=== PATIENT | male | born 1960 | race Caucasian/White ===

== ENCOUNTER 2022-02-01 06:22 | Inpatient (IN) | payer OTHER, SELFPAY ==
[2022-02-01] VITALS (26 sets, daily range): BP systolic 90–141; BP diastolic 52–76; PULSE 72–99; RESP 14–18; TEMP 36.4–37.6; O2SAT 99–100
--- NOTE | 2022-02-01 | DI.US_ITS ---
Exam(s) US EXTREMITY VENOUS BI EXAM: US EXTREMITY VENOUS BI CLINICAL HISTORY: concern for recurrent DVT. TECHNIQUE: Bilateral lower extremity venous ultrasound performed using grayscale, color-flow, and sp ectral Doppler analysis. COMPARISON: No exams were available for comparison FINDINGS: The bilateral common femoral, femoral and popliteal veins demonstrate normal compressibility, augment ation, and color Doppler. The posterior tibial veins are patent. The saphenofemoral junctions are unr emarkable. There is no evidence of a Bishop's cyst. The soft tissues are unremarkable. IMPRESSION: Right: Negative for DVT Left: Negative for DVT DATA REPOSITORY:
--- NOTE | 2022-02-01 06:15 | RT.EKG_ITS ---
APPROVED REPORT Exam: Resting ECG Reason for Exam: dizzy Patient Location: E HR:76 bpm ECG Measurements Heart Rate 76 AXIS SC 163 P 33 QRSd 90 QRS 6 QT 375 T 9 QTc 420 Conclusion Sinus rhythm...normal P axis, V-rate 60- 99 Physician: Rate 76, sinus rhythm, no significant ST elevations or depressions. No evidence of STEMI
--- NOTE | 2022-02-01 06:30 | DI.CT_ITS ---
Exam(s) CT HEAD WO EXAM: CT HEAD WO CLINICAL HISTORY: syncope, hx of cancer. TECHNIQUE: Imaging Protocol: Axial computed tomography images with coronal and sagittal reformatted images were created and reviewed COMPARISON: No exams were available for comparison FINDINGS: Ventricles and Extra axial spaces: Normal in size and morphology for the patient's age. Hemorrhage: None. Cerebral parenchyma: No acute territorial infarct. Midline shift: None. Brainstem/Cerebellum: Normal. Calvarium: Normal. Visualized Paranasal sinuses/Mastoids: Mild mucosal thickening in the right sphenoid and right maxill david sinuses. Otherwise visualized paranasal sinuses and mastoid air cells are clear. Soft Tissues: Unremarkable. IMPRESSION: No acute intracranial process. RADIATION DOSE DELIVERED: 780.29mGy.cm Total DLP DATA REPOSITORY: All CT scans at this facility are submitted to the National Radiology Data Registry (NRDR) Dose Index Registry (DIR) with the [employer] ([employer]). RADIATION OPTIMIZATION: All CT scans at this facility use at least one of these dose optimization te chniques: automated exposure control; mA and/or kV adjustment per patient size (includes targeted exa ms where dose is matched to clinical indication); or iterative reconstruction.
[2022-02-01] MEDS: Normal Saline 1,000 ML 1000 ML IV (06:43)
[2022-02-01 06:57] LABS: Abs Immature Grans 0.11 10^3/uL (0.0-0.06); Absolute Basophil Count 0.04 10^3/uL (0.0-0.2); Absolute Monocyte Count 0.86 10^3/uL (0.1-0.8); Absolute Neutrophil Count 6.64 10^3/uL (1.2-6.7); Basophils % 0.5; Eosinophils % 1.2; Immature Grans % 1.3; Lymphocytes % 10.4; MCH 29.3 pg (27.0-33.0); MCHC 31.9 % (32.0-36.0); MCV 92 fL (80-95); MPV 10.2 fL (8.0-11.0); Monocytes % 9.9; Neutrophils % 76.7; Nucleated RBC 0.2 % (0.0-0.3); Platelet Count 157 10^3/uL (130-400); RBC 1.57 10^6/uL (4.36-5.78); RDW 20.2 % (11.8-14.1); WBC 8.65 10^3/uL (4.4-10.8)
[2022-02-01 07:02] LABS: HCT 14.4 % (40.0-50.0); HGB 4.6 g/dL (13.5-17.5)
[2022-02-01 07:07] LABS: INR 2.2 (0.9-1.1); PTT Activated 27.5 sec (21.0-27.5); Prothrombin Time 21.6 sec (9.3-11.0)
--- NOTE | 2022-02-01 07:09 | W.ED.GENAD ---
Discharge Plan Disposition Patient Disposition: STILL A PATIENT Condition: Stable Discharge Details Chief Complaint: Dizzy/Sync Clinical Impression: Syncope, Dehydration Primary Care Provider: Unknown,Unknown ED Provider: Jose Martin Foley Home Meds and New Rx's Prescriptions: No Action multivitamin [Once Daily] 1 EACH tablet 1 tab PO DAILY aspirin [Aspir-81] 81 MG tablet,delayed release (DR/EC) 1 tab PO DAILY cinnamon bark 500 MG capsule 2 cap PO DAILY alpha lipoic acid [Lipoic Acid] 100 MG capsule 1 cap PO DAILY glucosam-chond ov-vbkbfb-rg ac 1 EACH capsule 2 ea PO DAILY Rx Instructions: 750mg/600mg glipizide 5 MG tablet extended release 24hr 5 mg PO DAILY Qty: 90 metformin 1,000 MG tablet 1,000 mg PO BID Qty: 180 Medical Decision Making This is a 61-year-old male with a past medical history of pancreatic cancer diagnosed 2 years ago, who had a partial removal of his pancreas, who still take every 2 weekly chemotherapy, who is an insulin-dependent type 2 diabetic, 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 Patient states that they normally live in the [facility], however they are currently up here getting her house ready to sell. Over the last few days he has not been drinking much fluid as a painting work done around the house. He has also noticed that over the last 2 days he has been getting lightheaded, particularly when he stands upright. In addition to this today he had 2 episodes of syncope where he was out of it for a few seconds, the patient's was able to catch him so he did not strike his head or fall to the floor. He denies any chest pain or pleuritic chest pain. He denies any vomiting or diarrhea. He denies any headache or vision changes. He denies any numbness tingling or focal weakness. The episodes last just a few seconds, and then resolve on their own. He does get sweaty when they occur. Patient does have a history of a DVT in the past, he does regularly take Xarelto. However he does state that 3 days ago he did miss his nighttime dose. He denies any history of heart attack or stroke. No other complaints at this time. No other modifying factors. Physical exam demonstrates no significant calf tenderness. No significant pitting edema in the lower extremities. Nontender abdomen, dry mucous membranes, no focal neurologic deficits. Differential is highest for dehydration, and syncope secondary to this, but with his history of DVTs and his missed dose of anticoagulant, PE is certainly higher on the differential. We will rehydrate, evaluate for these concerning etiologies, monitor closely and reassess. EK Rate 76, sinus rhythm, no significant ST elevations or depressions. No evidence of STEMI. HPI General Date/Time Provider Initiated Documentation: 02/01/22 06:23. 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 Patient states that they normally live in the [facility], however they are currently up here getting her house ready to sell. Over the last few days he has not been drinking much fluid as a painting work done around the house. He has also noticed that over the last 2 days he has been getting lightheaded, particularly when he stands upright. In addition to this today he had 2 episodes of syncope where he was out of it for a few seconds, the patient's was able to catch him so he did not strike his head or fall to the floor. He denies any chest pain or pleuritic chest pain. He denies any vomiting or diarrhea. He denies any headache or vision changes. He denies any numbness tingling or focal weakness. The episodes last just a few seconds, and then resolve on their own. He does get sweaty when they occur. Patient does have a history of a DVT in the past, he does regularly take Xarelto. However he does state that 3 days ago he did miss his nighttime dose. He denies any history of heart attack or stroke. No other complaints at this time. No other modifying factors. Related Data Home Medications Medication Instructions Recorded Confirmed aspirin 81 mg tablet,delayed 1 tab PO DAILY 12/27/12 release (Aspir-) cinnamon bark 500 mg capsule 2 cap PO DAILY 12/27/12 multivitamin (Once Daily tablet) 1 tab PO DAILY 12/27/12 alpha lipoic acid 100 mg capsule 1 cap PO DAILY 01/06/13 (Lipoic Acid) zinbmngzlr-kbiasnjppq-srpldjla-hyalur 2 ea PO DAILY 11/16/14 ac 375 mg-300 mg-175 mg-2 mg cap glipizide 5 mg tablet, extended 5 mg PO DAILY #90 tab-caps 07/03/16 release 24 hr metformin 1,000 mg tablet 1,000 mg PO BID #180 tab-caps 07/03/16 epoetin ira-epbx 2,000 unit/mL 1,000 unit subcut QWEEK 02/01/22 02/01/22 injection solution insulin aspart U-100 100 unit/mL 1 unit subcut DIRECTED 02/01/22 02/01/22 subcutaneous cartridge pjdifg-evwzdngx-gvcmlxj 1 cap PO TID 02/01/22 02/01/22 24,000-76,000-120,000 unit capsule,delayed rel (Creon) megestrol 400 mg/10 mL (10 mL) 400 mg PO DAILY 02/01/22 02/01/22 oral suspension metformin 1,000 mg tablet 1,000 mg PO BID 02/01/22 02/01/22 ondansetron HCl 8 mg tablet 8 mg PO Q8H 02/01/22 02/01/22 (Zofran) pegfilgrastim-bmez 6 mg/0.6 mL 6 mg subcut DIRECTED 02/01/22 02/01/22 subcutaneous syringe (Ziextenzo) prochlorperazine maleate 10 mg 10 mg PO Q6H PRN 02/01/22 02/01/22 tablet rivaroxaban 20 mg tablet 20 mg PO DAILY 02/01/22 02/01/22 Allergies Allergy/AdvReac Type Severity Reaction Status Date / Time amoxicillin Allergy Intermediate RASH Unverified 02/01/22 06:37 Penicillins Allergy Unknown Unverified 02/01/22 06:37 General Stated Complaint: Dizzy/Sync MARE: 3 Review of Systems All systems reviewed & are unremarkable except as noted in HPI and below PFSH All Active Problems (Updated 02/01/22 @ 07:14 by Jose Martin Foley DO) Syncope (Chronic) Dehydration (Acute) Diabetes mellitus (Acute 01/06/13) Family History Brother Dementia Brother No problems noted. Brother No problems noted. Brother No problems noted. Brother No problems noted. Brother No problems noted. Brother No problems noted. Brother No problems noted. Brother No problems noted. Brother No problems noted. Brother No problems noted. Brother No problems noted. Brother No problems noted. Brother No problems noted. Brother No problems noted. Brother No problems noted. Brother No problems noted. Brother No problems noted. Brother No problems noted. Brother No problems noted. Brother No problems noted. Brother No problems noted. Brother No problems noted. Brother No problems noted. Brother No problems noted. Brother No problems noted. Brother No problems noted. Brother No problems noted. Brother No problems noted. Brother No problems noted. Brother No problems noted. Brother No problems noted. Brother No problems noted. Brother No problems noted. Brother No problems noted. Brother No problems noted. Brother No problems noted. Brother No problems noted. Brother No problems noted. Brother No problems noted. Brother No problems noted. Brother No problems noted. Brother No problems noted. Brother No problems noted. Brother No problems noted. Brother No problems noted. Brother No problems noted. Brother No problems noted. Brother No problems noted. Brother No problems noted. Brother No problems noted. Brother No problems noted. Brother No problems noted. Brother No problems noted. Brother No problems noted. Brother No problems noted. Brother No problems noted. Brother No problems noted. Brother No problems noted. Brother No problems noted. Social History Smoking/Tobacco Use Status: Never Smoking risk assessment performed?: Yes Alcohol Intake: never Substance use type: does not use Do you feel safe at home: Yes Do you feel safe in your relationship?: Yes Exam Narrative Exam Narrative: 1.Const: Well-nourished, Well-developed, appearing stated age 2.Eyes: PERRL, no conjunctival injection, and symmetrical lids. 3.ENT: Atraumatic external nose and ears. Dry MM. Neck: Symmetric, trachea midline, No thyromegaly. 4.CVS: +S1/S2, No murmurs or gallops. Peripheral pulses 2+ and equal in all extremities. Brisk capillary refill in all extremities. 5.RESP: Unlabored respiratory effort. Clear to auscultation bilaterally. No wheezes rales or rhonchi 6.GI: Soft, Nontender/Nondistended, No hepatosplenomegaly. No guarding or rebound. 7.MSK: Normocephalic/Atraumatic, Extremities w/o deformity or ttp No cyanosis or clubbing, Normal movement of all extremities, no calf tenderness. 8.Skin: Warm, Dry. No rashes or lesions. 9.Neuro: rug washer II-XII grossly intact. Sensation grossly intact, no focal neurologic deficits. All 6 cardinal planes of vision are fully intact. No evidence of rotatory or vertical nystagmus. The patient demonstrated a normal anuysi-fwwr-amnpoy, good dexterity. There was no evidence of dysdiadochokinesia. Patient was able to ambulate without difficulty. There was no wide-based gait. Romberg testing was normal. Duht-vu-ezgs testing was normal. Sensation was intact bilaterally as well as muscle strength bilaterally for all extremities. Patient was able to verbalize butter cup with no slurring, or miss pronunciation. 10.Psych: (AAO) x3. Appropriate mood and affect Course Vital Signs Vital signs: Vital Signs Temperature 36.4 C L 02/01/22 06:22 Pulse 99 H 02/01/22 06:22 Respiratory Rate 18 02/01/22 06:22 Blood Pressure 119/68 02/01/22 06:22 Pulse Oximetry 100 02/01/22 06:22 Temperature 36.4 C L 02/01/22 06:22 Temperature Source Skin 02/01/22 06:22 Pulse 99 H 02/01/22 06:22 Respiratory Rate 18 02/01/22 06:30 Respiratory Effort 02/01/22 06:30 Respiratory Depth Normal 02/01/22 06:30 Respiratory Pattern Normal 02/01/22 06:30 Blood Pressure 119/68 02/01/22 06:22 Blood Pressure Position Sitting 02/01/22 06:22 Pulse Oximetry 100 02/01/22 06:22 Oxygen Delivery Method Room Air 02/01/22 06:22 Oxygen Flow Rate 0 02/01/22 06:22 Pain Level 0 02/01/22 06:22
[2022-02-01 07:17] LABS: ALT 14 U/L (16-63); AST 11 U/L (15-37); Albumin 2.7 g/dL (3.4-5.0); Alkaline Phosphatase 85 U/L (46-116); BUN 33 mg/dL (7-18); Bilirubin, Total 0.4 mg/dL (0.2-1.0); CREATININE 1.2 mg/dL (0.70-1.30); Chloride 106 mmol/L (98-107); Glucose 121 mg/dL (74-106); NT-proBNP 196 pg/mL (<300); Potassium 3.9 mmol/L (3.5-5.1); Sodium 137 mmol/L (136-145); TSH (W/Ref FT4) 5.69 uIU/mL (0.36-3.74); Total Protein 5.2 g/dL (6.4-8.2); Troponin I < 50 ng/L (<or=60)
[2022-02-01 07:29] LABS: D-Dimer 362 ng/mlFEU (<500)
[2022-02-01 07:32] LABS: Anisocytosis 2+; Diff Comment Agrees w/ Instrument; Hypochromasia 3+
--- NOTE | 2022-02-01 08:15 | DI.VRAD_ITS ---
PROCEDURE INFORMATION: Exam: CT Head Without Contrast Exam date and time: 02/01/2022 7:37 AM Age: 61 years old Clinical indication: Other: Syncope, HX of cancer TECHNIQUE: Imaging protocol: Computed tomography of the head without contrast. Radiation optimization: All CT scans at this facility use at least one of these dose optimization techniques: automated exposure control; mA and/or kV adjustment per patient size (includes targeted exams where dose is matched to clinical indication); or iterative reconstruction. COMPARISON: No relevant prior studies available. FINDINGS: Brain: Symmetric caliber of the cortical sulci. Dural calcifications, including a 14 mm calcified meningioma in the anterior falx. No acute cortical infarct, mass effect, or intracranial hemorrhage. Cerebral ventricles: Asymmetric caliber of the occipital horns. No hydrocephalus. Paranasal sinuses: Trace right sphenoid sinus fluid. Trace right maxillary sinus mucoperiosteal disease. Mastoid air cells: No mastoid effusion. Bones/joints: No acute calvarial pathology. Soft tissues: Unremarkable soft tissues. IMPRESSION: No acute intracranial pathology. Dictated and Authenticated by: Jl Lee MD. Ordering:MILIND Philippe MD
--- NOTE | 2022-02-01 08:16 | NUR.NOTE ---
while doing orthostatic BP pt was near syncopal when standing for BP. RN and lowered pt back into bed. provider notified. TODD
--- NOTE | 2022-02-01 08:50 | ED.PROG_ITS ---
Date of service: 02/01/22 Time of Service: 07:50 Medical Decision Making Case given signout by Dr. Foley, please see his documentation regarding initial ED presentation course. Plan at signout to follow-up on labs and reassess patient for disposition. On reassessment, patient remains orthostatic despite full liter bolus. patient had dizziness when sitting up and then had syncope that was brief when he moved from sitting to standing position. Labs reviewed: Anemia noted. Plan to treat with 2 units PRBC, irradiated. Of note, patient did recently have dark stool with some red coloration. does note he did have some orange-colored Gatorade. Hemoccult was performed on stool sample here in the emergency department and noted to be negative. Patient is full code. Patient's oncologist Dr. Frausto's number for future reference is ([phone]. I did call clinic to alert them that patient would be admitted and left voice msg. Lab Data Lab results reviewed: Yes I reviewed the patient's lab results. Labs: Laboratory Tests Range/Units 02/01/22 02/01/22 02/01/22 06:42 06:42 06:42 WBC (4.4-10.8) 10^3/uL 8.65 RBC (4.36-5.78) 10^6/uL 1.57 L Hgb (13.5-17.5) g/dL 4.6 L* Hct (40.0-50.0) % 14.4 L* MCV (80-95) fL 92 MCH (27.0-33.0) pg 29.3 MCHC (32.0-36.0) % 31.9 L RDW (11.8-14.1) % 20.2 H Plt Count (130-400) 10^3/uL 157 MPV (8.0-11.0) fL 10.2 Immature Gran % 1.3 Neutrophils % 76.7 Lymphocytes % 10.4 Monocytes % 9.9 Eosinophils % 1.2 Basophils % 0.5 Nucleated RBC % (0.0-0.3) % 0.2 Absolute Neutrophils (1.2-6.7) 10^3/uL 6.64 Absolute Lymphocytes (1.2-3.4) 10^3/uL 0.90 L Absolute Monocytes (0.1-0.8) 10^3/uL 0.86 H Absolute Eosinophils (0.0-0.7) 10^3/uL 0.10 Absolute Basophils (0.0-0.2) 10^3/uL 0.04 RBC Morphology See Below Hypochromasia 3+ Anisocytosis 2+ PT (9.3-11.0) sec 21.6 H INR (0.9-1.1) 2.2 H APTT (21.0-27.5) sec 27.5 D-Dimer (<500) ng/mlFEU 362 Sodium (136-145) mmol/L 137 Potassium (3.5-5.1) mmol/L 3.9 Chloride (98-107) mmol/L 106 Carbon Dioxide (21.0-32.0) mmol/L 21.0 Anion Gap (3-11) mmol/L 10.0 BUN (7-18) mg/dL 33 H Creatinine (0.70-1.30) mg/dL 1.2 Estimated GFR/1.73 m2 (mL/min/1.73m2) >= 60.00 Glucose (74-106) mg/dL 121 H Calcium (8.5-10.1) mg/dL 8.0 L Total Bilirubin (0.2-1.0) mg/dL 0.4 AST (15-37) U/L 11 L ALT (16-63) U/L 14 L Alkaline Phosphatase (46-116) U/L 85 Troponin I (<or=60) ng/L < 50 NT-Pro-B Natriuret Pep (<300) pg/mL 196 Total Protein (6.4-8.2) g/dL 5.2 L Albumin (3.4-5.0) g/dL 2.7 L TSH (0.36-3.74) uIU/mL 5.69 H Free T4 (0.76-1.46) ng/dL 1.40 Patient ABO/Rh Antibody Screen Crossmatch Range/Units 02/01/22 02/01/22 06:42 08:10 WBC (4.4-10.8) 10^3/uL RBC (4.36-5.78) 10^6/uL Hgb (13.5-17.5) g/dL Hct (40.0-50.0) % MCV (80-95) fL MCH (27.0-33.0) pg MCHC (32.0-36.0) % RDW (11.8-14.1) % Plt Count (130-400) 10^3/uL MPV (8.0-11.0) fL Immature Gran % Neutrophils % Lymphocytes % Monocytes % Eosinophils % Basophils % Nucleated RBC % (0.0-0.3) % Absolute Neutrophils (1.2-6.7) 10^3/uL Absolute Lymphocytes (1.2-3.4) 10^3/uL Absolute Monocytes (0.1-0.8) 10^3/uL Absolute Eosinophils (0.0-0.7) 10^3/uL Absolute Basophils (0.0-0.2) 10^3/uL RBC Morphology Hypochromasia Anisocytosis PT (9.3-11.0) sec INR (0.9-1.1) APTT (21.0-27.5) sec D-Dimer (<500) ng/mlFEU Sodium (136-145) mmol/L Potassium (3.5-5.1) mmol/L Chloride (98-107) mmol/L Carbon Dioxide (21.0-32.0) mmol/L Anion Gap (3-11) mmol/L BUN (7-18) mg/dL Creatinine (0.70-1.30) mg/dL Estimated GFR/1.73 m2 (mL/min/1.73m2) Glucose (74-106) mg/dL Calcium (8.5-10.1) mg/dL Total Bilirubin (0.2-1.0) mg/dL AST (15-37) U/L ALT (16-63) U/L Alkaline Phosphatase (46-116) U/L Troponin I (<or=60) ng/L NT-Pro-B Natriuret Pep (<300) pg/mL Total Protein (6.4-8.2) g/dL Albumin (3.4-5.0) g/dL TSH (0.36-3.74) uIU/mL Free T4 (0.76-1.46) ng/dL Patient ABO/Rh A Positive A Positive Antibody Screen NEGATIVE Crossmatch See Detail Sign Out Sign Out Data: Sign Out Comment: Pancreatic cancer patient, on chemotherapy, pending CT scan of the head and reassessment. Suspect dehydration as cause of syncope. Last updated by Jose Martin Foley DO at 02/01/22 07:41 Discharge Plan Disposition Patient Disposition: [facility] INPATIENT Condition: Serious Discharge Details Clinical Impression: Syncope, Dehydration, Severe anemia Primary Care Provider: Hilaria,Local ED Provider: Dannie Ellison Home Meds and New Rx's Prescriptions: No Action multivitamin [Once Daily] 1 EACH tablet 1 tab PO DAILY aspirin [Aspir-81] 81 MG tablet,delayed release (DR/EC) 1 tab PO DAILY cinnamon bark 500 MG capsule 2 cap PO DAILY alpha lipoic acid [Lipoic Acid] 100 MG capsule 1 cap PO DAILY glucosam-chond ni-typzyq-ok ac 1 EACH capsule 2 ea PO DAILY Rx Instructions: 750mg/600mg glipizide 5 MG tablet extended release 24hr 5 mg PO DAILY Qty: 90 metformin 1,000 MG tablet 1,000 mg PO BID Qty: 180 ondansetron HCl [Zofran] 8 mg Tablet 8 mg PO Q8H prochlorperazine maleate 10 mg Tablet 10 mg PO Q6H PRN metformin 1,000 mg Tablet 1,000 mg PO BID insulin aspart U-100 100 unit/mL Cartridge 1 unit SUBCUT DIRECTED Rx Instructions: given by pump when needed Creon 24,000-76,000 -120,000 unit Capsule,Delayed Release(Dr/Ec) 1 cap PO TID Rx Instructions: administer with meals and/or snacks, 2-3 with each meal 1 with snack rivaroxaban 20 mg Tablet 20 mg PO DAILY Rx Instructions: must administer with evening meal megestrol 400 mg/10 mL (10 mL) Suspension 400 mg PO DAILY epoetin ira-epbx 2,000 unit/mL Solution 1,000 unit subcut QWEEK Ziextenzo 6 mg/0.6 mL Syringe 6 mg SUBCUT DIRECTED Rx Instructions: every 2 weeks, 24 hours after chemo treatment
[2022-02-01 09:34] LABS: Source Nasal/Nares
[2022-02-01 10:25] LABS: COVID-19 PCR Negative (Negative)
[2022-02-01 10:33] LABS: Troponin I < 50 ng/L (<or=60)
[2022-02-01] MEDS: Pantoprazole 40 MG VIAL IVP (12:05)
[2022-02-01] MEDS: Normal Saline Flush 10 ML SYR IVP (12:06)
--- NOTE | 2022-02-01 12:26 | HPE_ITS ---
Date of service: 02/01/22 Time of Service: 11:27 Assessment and Plan Assessment and plan (1) Symptomatic anemia: Status: Acute Assessment and plan: receiving blood transfusion. Suspected sources: chemotherapy related (acute on chronic anemia) as well as possible GI blood loss (on anticoagulation). Will speak with outpatient oncologist. Will evaluate the need to be on anticoagulation currently - obtain venous dopplers BLEs. Treat with PPI and carafate. Trend H/H. Monitor for bleeding. Clear liquid diet. (2) Syncope: Status: Chronic Assessment and plan: Due to above; as above (3) Orthostatic hypotension: Status: Acute Assessment and plan: due to above, as above (4) IDDM (insulin dependent diabetes mellitus): Assessment and plan: on insulin pump communicating to CGM. Continue home insulin pump while checking fingersticks to ensure that the pump is functioning properly. (5) Pancreatic cancer metastasized to liver: Assessment and plan: discussed with nurse at the patient's cancer center - either of the agents he is on could have contributed to anemia. (6) Dehydration: Status: Acute Assessment and plan: IVF (7) Left leg DVT: Assessment and plan: Check venous dopplers BLEs; holding anticoagulation at this time. (8) Discharge planning issues: Status: Acute Assessment and plan: Full code Anticipate discharge home tomorrow vs 48 hrs from now History of Present Illness History of Present Illness Chief Complaint: Fainting x 2 Narrative: Mr Pickens is a 61 year old male with PMHx of metastatic pancreatic cancer on chemoctherapy with irinotecan and 5FU, as well as h/o prior DVT in E (2019) on xarelto, IDDM2 on insulin pump and metformin, chronic anemia on erythropoetin, who presented to [facility] ED after 2 syncopal episodes in the bathroom today following urination. He did hit his head on the sink during one of the falls. Per patient, his had noticed some blood in his stool today as well, but he was hemoccult negative in the ED. He had recently traveled in the car from [place] (in one day) and had noticed some leg swelling. In the ED, he had another syncopal episode and was orthostatic. His workup revealed a hemoglobin of 4.6. He was ordered 2 units of pRBCs. Hospitalist admission was requested. The [facility] ent is not interested in having any endoscopic procedures here - he would prefer to return to [place] where he gets his care. He would like us to contact his oncologist Dr Frausto [phone]. Review of Systems Narrative: additionally, reports symptoms of heartburn and abdominal pain after eating yesterday. Denies chest pain, palpitations. Endorses dizziness every time he tries to get up. All systems reviewed & are unremarkable except as noted in HPI and below PFSH All Active Problems (Updated 02/01/22 @ 12:47 by Shahnaz Sotelo MD) Discharge planning issues (Acute) Orthostatic hypotension (Acute) Symptomatic anemia (Acute) Syncope (Chronic) Dehydration (Acute) Severe anemia (Acute) Diabetes mellitus (Acute 01/06/13) Medical History (Updated 02/01/22 @ 12:47 by Shahnaz Sotelo MD) Anemia IDDM (insulin dependent diabetes mellitus) Type 2; on insulin pump and metformin Incisional hernia Left leg DVT 2019 Pancreatic cancer metastasized to liver Surgical History (Updated 02/01/22 @ 12:41 by Shahnaz Sotelo MD) H/O Whipple procedure Hx of colonoscopy Osteoma L femur; resected Port-A-Cath in place S/P left inguinal hernia repair Family History (Updated 02/01/22 @ 12:42 by Sahhnaz Sotelo MD) Brother Dementia Father Heart disease CHF Hypertension Father Diabetes Mother Diabetes Paternal Grandmother Cancer stomach cancer Social History Smoking/Tobacco Use Status: Never Smoking risk assessment performed?: Yes Alcohol Intake: never Substance use type: does not use Do you feel safe at home: Yes Do you feel safe in your relationship?: Yes Meds Allergies and Home Medications Allergies Allergy/AdvReac Type Severity Reaction Status Date / Time amoxicillin Allergy Intermediate RASH Unverified 02/01/22 06:37 Penicillins Allergy Unknown Unverified 02/01/22 06:37 Home Medications Medication Instructions Recorded Confirmed Type multivitamin (Once Daily tablet) 1 tab PO DAILY 12/27/12 02/01/22 History metformin 1,000 mg tablet 1,000 mg PO BID #180 tab-caps 07/03/16 02/01/22 History epoetin ira-epbx 2,000 unit/mL 1,000 unit subcut QWEEK 02/01/22 02/01/22 History injection solution insulin aspart U-100 100 unit/mL 1 unit subcut DIRECTED 02/01/22 02/01/22 History subcutaneous cartridge pyyimu-oafqejcv-ctioqnc 1 cap PO TID 02/01/22 02/01/22 History 24,000-76,000-120,000 unit capsule,delayed rel (Creon) megestrol 400 mg/10 mL (10 mL) 400 mg PO DAILY 02/01/22 02/01/22 History oral suspension metformin 1,000 mg tablet 1,000 mg PO BID 02/01/22 02/01/22 History ondansetron HCl 8 mg tablet 8 mg PO Q8H 02/01/22 02/01/22 History (Zofran) pegfilgrastim-bmez 6 mg/0.6 mL 6 mg subcut DIRECTED 02/01/22 02/01/22 History subcutaneous syringe (Ziextenzo) prochlorperazine maleate 10 mg 10 mg PO Q6H PRN 02/01/22 02/01/22 History tablet rivaroxaban 20 mg tablet 20 mg PO DAILY 02/01/22 02/01/22 History Exam Narrative Exam Narrative: General: Pleasant middle-aged male, A&Ox3, appears pale, comfortable in bed Neurological: A&Ox3, no focal deficits Psychiatric: Appropriate speech pattern/content Skin: pale, dry, intact; R chest infusaport site without erythema or signs of bleeding HEENT: Atraumatic, normocephalic, EOMI, MMM, clear oropharynx, no goiter or JVD Cardiovascular: RRR, no m/r/g Lungs: CTAB anteriorly (did not have the patient sit up since he is so orthostatic) Gastrointestinal: soft, nontender, nondistended Genitourinary: deferred Extremities: no edema BLEs, trace pedal pulses B, no clubbing/cyanosis, no lesions on B feet Results Imaging Additional studies: CT head: No acute intracranial process.? EKG: HR 76, NSR, no acute ischemia Labs Result diagrams: 02/01/22 06:42 02/01/22 06:42 Labs: Laboratory Results - last 24 hr 02/01/22 02/01/22 02/01/22 06:42 06:42 06:42 WBC 8.65 RBC 1.57 L Hgb 4.6 L* Hct 14.4 L* MCV 92 MCH 29.3 MCHC 31.9 L RDW 20.2 H Plt Count 157 MPV 10.2 Immature Gran % 1.3 Neutrophils % 76.7 Lymphocytes % 10.4 Monocytes % 9.9 Eosinophils % 1.2 Basophils % 0.5 Nucleated RBC % 0.2 Absolute Neutrophils 6.64 Absolute Lymphocytes 0.90 L Absolute Monocytes 0.86 H Absolute Eosinophils 0.10 Absolute Basophils 0.04 RBC Morphology See Below Hypochromasia 3+ Anisocytosis 2+ PT 21.6 H INR 2.2 H APTT 27.5 D-Dimer 362 Sodium 137 Potassium 3.9 Chloride 106 Carbon Dioxide 21.0 Anion Gap 10.0 BUN 33 H Creatinine 1.2 Estimated GFR/1.73 m2 >= 60.00 Glucose 121 H Calcium 8.0 L Total Bilirubin 0.4 AST 11 L ALT 14 L Alkaline Phosphatase 85 Troponin I < 50 NT-Pro-B Natriuret Pep 196 Total Protein 5.2 L Albumin 2.7 L TSH 5.69 H Free T4 1.40 COVID-19 Source SARS-CoV-2 (PCR) Patient ABO/Rh Antibody Screen Crossmatch 02/01/22 02/01/22 02/01/22 06:42 08:10 08:54 WBC RBC Hgb Hct MCV MCH MCHC RDW Plt Count MPV Immature Gran % Neutrophils % Lymphocytes % Monocytes % Eosinophils % Basophils % Nucleated RBC % Absolute Neutrophils Absolute Lymphocytes Absolute Monocytes Absolute Eosinophils Absolute Basophils RBC Morphology Hypochromasia Anisocytosis PT INR APTT D-Dimer Sodium Potassium Chloride Carbon Dioxide Anion Gap BUN Creatinine Estimated GFR/1.73 m2 Glucose Calcium Total Bilirubin AST ALT Alkaline Phosphatase Troponin I NT-Pro-B Natriuret Pep Total Protein Albumin TSH Free T4 COVID-19 Source Cancelled SARS-CoV-2 (PCR) Cancelled Patient ABO/Rh A Positive A Positive Antibody Screen NEGATIVE Crossmatch See Detail 02/01/22 02/01/22 09:30 10:15 WBC RBC Hgb Hct MCV MCH MCHC RDW Plt Count MPV Immature Gran % Neutrophils % Lymphocytes % Monocytes % Eosinophils % Basophils % Nucleated RBC % Absolute Neutrophils Absolute Lymphocytes Absolute Monocytes Absolute Eosinophils Absolute Basophils RBC Morphology Hypochromasia Anisocytosis PT INR APTT D-Dimer Sodium Potassium Chloride Carbon Dioxide Anion Gap BUN Creatinine Estimated GFR/1.73 m2 Glucose Calcium Total Bilirubin AST ALT Alkaline Phosphatase Troponin I < 50 NT-Pro-B Natriuret Pep Total Protein Albumin TSH Free T4 COVID-19 Source Nasal/Nares SARS-CoV-2 (PCR) Negative Patient ABO/Rh Antibody Screen Crossmatch Last Vital Signs Temp 37.3 C 02/01/22 12:23 Pulse 87 02/01/22 12:23 Resp 16 02/01/22 12:23 BP 122/73 02/01/22 12:23 Pulse Ox 100 02/01/22 12:23
[2022-02-01] MEDS: Normal Saline 1,000 ML 125 ML IV (14:22)
[2022-02-01 15:06] LABS: HGB 5.8 g/dL (13.5-17.5)
[2022-02-01] MEDS: Sucralfate 1 GM TAB PO ×2 (15:56→22:02)
[2022-02-01 16:46] LABS: HGB 6.3 g/dL (13.5-17.5)
[2022-02-01 16:55] LABS: Bilirubin Negative (Negative); Blood Negative (Negative); Clarity Clear (Clear); Glucose 100 mg/dL (Negative); Ketones Negative (Negative); Leukocyte Esterase Negative (Negative); Nitrite Negative (Negative); Urobilinogen 0.2 EU/dL (Up TO 0.2)
[2022-02-01] MEDS: metFORMIN 500 MG TAB 1000 MG PO (17:43)
--- NOTE | 2022-02-01 18:22 | CHAPLAIN ---
I visited with Chemo shortly after he was admitted. 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 He lives in [place] with his [place]. Chemo has pancreatic cancer and is receiving chemo currently. 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 I will continue to visit.
[2022-02-02] VITALS (14 sets, daily range): BP systolic 100–144; BP diastolic 61–89; PULSE 66–98; RESP 16–18; TEMP 36.3–36.9; O2SAT 99–100
[2022-02-02] MEDS: Normal Saline Flush 10 ML SYR IVP ×2 (00:11→08:38)
[2022-02-02] MEDS: Pantoprazole 40 MG VIAL IVP ×3 (00:12→21:46)
[2022-02-02] MEDS: Normal Saline 1,000 ML 125 ML IV ×3 (00:12→18:20)
[2022-02-02 06:31] LABS: Abs Immature Grans 0.19 10^3/uL (0.0-0.06); Absolute Basophil Count 0.04 10^3/uL (0.0-0.2); Absolute Eosinophil Count 0.05 10^3/uL (0.0-0.7); Absolute Lymphocyte Count 0.84 10^3/uL (1.2-3.4); Absolute Monocyte Count 0.86 10^3/uL (0.1-0.8); Absolute Neutrophil Count 5.67 10^3/uL (1.2-6.7); Basophils % 0.5; Eosinophils % 0.7; Immature Grans % 2.5; MCH 29.1 pg (27.0-33.0); MCHC 32.9 % (32.0-36.0); MCV 89 fL (80-95); MPV 9.6 fL (8.0-11.0); Monocytes % 11.2; Neutrophils % 74.1; Platelet Count 125 10^3/uL (130-400); RBC 2.34 10^6/uL (4.36-5.78); RDW 19.2 % (11.8-14.1); RDW-SD 52.3 fL; WBC 7.65 10^3/uL (4.4-10.8)
[2022-02-02 06:45] LABS: ALT 15 U/L (16-63); AST 12 U/L (15-37); Albumin 2.6 g/dL (3.4-5.0); Alkaline Phosphatase 81 U/L (46-116); Anion Gap 7.1 mmol/L (3-11); BUN 24 mg/dL (7-18); Bilirubin, Direct 0.2 mg/dL (0.0-0.2); Bilirubin, Total 0.7 mg/dL (0.2-1.0); CO2 20.9 mmol/L (21.0-32.0); CREATININE 1.3 mg/dL (0.70-1.30); Calcium 7.8 mg/dL (8.5-10.1); Chloride 107 mmol/L (98-107); Estimated GFR 56.12 (mL/min/1.73m2); Glucose 88 mg/dL (74-106); Magnesium 1.5 mg/dL (1.8-2.4); Potassium 3.4 mmol/L (3.5-5.1); Sodium 135 mmol/L (136-145)
[2022-02-02 07:03] LABS: HGB 6.8 g/dL (13.5-17.5)
[2022-02-02 07:04] LABS: HCT 20.7 % (40.0-50.0)
[2022-02-02 07:06] LABS: Diff Comment Agrees w/ Instrument
[2022-02-02 07:07] LABS: Microcytosis 2+; Poikilocytes 2+; Polychromasia Present
--- NOTE | 2022-02-02 08:18 | INITIAL_ITS ---
- If Service Date Differs Date of service: 02/02/22 Time of Service: 08:18 Care Management Initial Assess REASON FOR HOSPITALIZATION:: symptomatic anemia PAST MEDICAL HISTORY/PAST SURGICAL HISTORY:: All Active Problems (Updated 02/01/22 @ 12:47 by Shahnaz Sotelo MD). Discharge planning issues (Acute). Orthostatic hypotension (Acute). Symptomatic anemia (Acute). Syncope (Chronic). Dehydration (Acute). Severe anemia (Acute). Diabetes mellitus (Acute 01/06/13). Medical History (Updated 02/01/22 @ 12:47 by Shahnaz Sotelo MD). Anemia. IDDM (insulin dependent diabetes mellitus). Type 2; on insulin pump and metformin. Incisional hernia. Left leg DVT. 2019. Pancreatic cancer metastasized to liver. Surgical History (Updated 02/01/22 @ 12:41 by Shahnaz Sotelo MD). H/O Whipple procedure. Hx of colonoscopy. Osteoma. L femur; resected. Port-A-Cath in place. S/P left inguinal hernia repair PREVIOUS FUNCTIONAL STATUS/SOCIAL/FAMILY SUPPORTS:: Chemo lives in [place], [place] with his Destini. They have 5 children, all of whom live in [place]. 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 Chemo is independent at baseline and does not receive any services. CURRENT FUNCTIONAL STATUS:: Chemo was sitting up in bed visiting with his when CM met with him. He was pleasant and easily engaged in conversation. Chemo stated that he is feeling much better after having received several units of blood. He shared that he expects to have a surgical consult today and will likely have an EGD tomorrow morning. He hopes to be able to return to [place] by Sunday as he is scheduled to receive chemotherapy on Sunday. ADVANCE DIRECTIVES:: none on file Has patient been provided with info about the portal/API?: Yes Did the patient sign up for the portal?: No CODE STATUS:: Full Code INSURANCE COVERAGE / FINANCIAL ISSUES:: [employer] CURRENT HOME/COMMUNITY SERVICES/EQUIPMENT:: none PRIMARY CARE PHYSICIAN:: out of state POTENTIAL DISCHARGE NEEDS:: follow up with providers in his own community in [place] PATIENT/FAMILY EDUCATION NEEDS:: Review of discharge instructions, follow up plan, limitations, medications' discuss Ask Me Three TRANSPORTATION:: via private vehicle with PLAN:: Chemo will be discharged home with no new services. He will follow up with his providers in [place] and transport with his . CM will continue to support Chemo and assess for discharge planning concerns.
[2022-02-02] MEDS: metFORMIN 500 MG TAB 1000 MG PO ×2 (08:39→16:21)
[2022-02-02] MEDS: Sucralfate 1 GM TAB PO ×4 (08:39→21:46)
[2022-02-02] MEDS: Multivitamin TAB 1 TAB PO (08:39)
[2022-02-02] MEDS: MAGNESIUM SULFATE 4 GM/100 ML BAG IVPB (08:40)
[2022-02-02] MEDS: POTASSIUM CHLORIDE 20 MEQ/100 ML BAG 50 MEQ IVPB (08:40)
[2022-02-02] MEDS: diphenhydrAMINE 25 MG CAP PO (08:59)
[2022-02-02] MEDS: Acetaminophen 325 MG TAB 650 MG PO (09:00)
--- NOTE | 2022-02-02 09:54 | W.SURGCON ---
Date of service: 02/02/22 Time of Service: 08:54 Assessment and Plan Assessment and plan (1) Severe anemia: Status: Acute Assessment and plan: EGD in am Informed consent is obtained for the procedural (explained in simple layman's terms that the pt and/or family could understand) explaining risks vs benefits and alternatives to the procedure and consequences if we do not do the procedure and need/rational for the procedure. Risks include but are not limited to: bleeding, infection, perforation of esophagus, stomach, colon, small intestines, bronchus or trachea, or PTX. This would necessitate emergency surgery to repair the damage w/ possible ostomy; and other associated complications w/ the required surgery. Also complications of anesthesia including aspiration, LA/CVA/. -concern for anstomatic ulcer. Less concern for bleeding from the tumor. On his CT from 12/30/21- tumor burden is increasing but not to the point of eroding through any major vessels. Pt is not having any significant abdominal pain. MRCP in am. repeat inr & electrolytes in am check feritin/iron cont PPI/carafate pt is hoping to get back to [place] by Sunday for next chemo. They are flying back. nutritional support Cont supportive care (2) IDDM (insulin dependent diabetes mellitus): (3) Left leg DVT: (4) Pancreatic cancer metastasized to liver: (5) Port-A-Cath in place: (6) Elevated INR: Status: Acute (7) Symptomatic anemia: Status: Acute History of Present Illness Narrative: Irotecan & 5FU Pt has medastatic pancreatic CA w/ mets to liver. He is activiely undergoing chemo. Last chemo was I wrote he can was 516 and the 5-FU finished on 519. 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 He normally resides in [place] and gets his treatment there. I did review the notes from his oncology team. The tumor burden in the pancreatic bed is increasing in size. The mass in his liver appears stable. His CEA today to diet is continuing to rise. They are going to continue with chemo at this. He was staying with some friends when he started to feel very weak/short of breath/fatigued. And he came into the ER and was found to have a hemoglobin of 4.6. He has had black tarry stools since Marcus. He does not use aspirin or NSAIDs. He eats a healthy diet. He is not on any blood thinners. He has never had any stomach problems before. He has had a Whipple done. He does not normally have problems with heartburn or indigestion. He did not the last couple days that he is been having more indigestion type symptoms. These were rather vague nondescript symptoms. He has been on Protonix and Carafate since he has been in the hospital. He had imaging on 12/30/2021 which again did show increase of tumor burden in the pancreatic bed. There is no obstruction of the bile duct his LFTs are relatively normal. His INR was mildly elevated at 2.2. We will repeat this in a.m. There is no signs of varices or esophageal problems on his last CT scan. He has no abdominal pain today. He still having black sticky stools today. no headaches. No CP or SOB. no productive cough. no dysuria. no leg pain or swelling. Review of Systems All systems reviewed & are unremarkable except as noted in HPI and below PFSH All Active Problems (Updated 02/02/22 @ 23:26 by Nora Brasher DO) Elevated INR (Acute) Discharge planning issues (Acute) Orthostatic hypotension (Acute) Symptomatic anemia (Acute) Syncope (Chronic) Dehydration (Acute) Severe anemia (Acute) Diabetes mellitus (Acute 01/06/13) Medical History Anemia IDDM (insulin dependent diabetes mellitus) Type 2; on insulin pump and metformin Incisional hernia Left leg DVT 2019 Pancreatic cancer metastasized to liver Surgical History H/O Whipple procedure Hx of colonoscopy Osteoma L femur; resected Port-A-Cath in place S/P left inguinal hernia repair Family History Brother Dementia Father Heart disease CHF Hypertension Father Diabetes Mother Diabetes Paternal Grandmother Cancer stomach cancer Social History Smoking/Tobacco Use Status: Never Smoking risk assessment performed?: Yes Alcohol Intake: never Substance use type: does not use Do you feel safe at home: Yes Do you feel safe in your relationship?: Yes Exam Narrative Exam Narrative: PHYSICAL EXAM GENERAL APPEARANCE: Alert, healthy appearance, oriented, in no acute distress SKIN: No rashes.? No breakdown HYDRATION: Well hydrated HEAD, EYES, EARS, NECK, THROAT: Head is normocephalic, pupils equal, round, reactive to light and accommodation, ocular movement intact, sclera clear and no jaundice. ?Dentition intact. No sore throat.? No jaw pain. No thrush NECK: Supple, Trachea midline. No JVD. LUNGS: normal respiration/nl chest excursion. ?Clear to auscultation B/l no R/R/W ?HEART: Regular rate and rhythm, EXTREMITY: No edema or cyanosis? no leg pain, redness, swelling.? No IV infiltration ABDOMEN: non tender to palpation, no masses or distention, small incisional hernia Normal bowel sounds postsurgical changes noted. No abdominal pain today. Stools have been Hemoccult positive NEURO: no focal neuro deficits. ? Results Last Vital Signs Temp 36.9 C 02/02/22 07:34 Pulse 77 02/02/22 07:34 Resp 18 02/02/22 07:34 BP 129/75 02/02/22 07:34 Pulse Ox 99 02/02/22 07:34 Labs Result diagrams: 02/02/22 15:20 02/02/22 06:01 Labs: Laboratory Results - last 24 hr 02/01/22 02/01/22 02/01/22 08:10 09:30 10:15 WBC RBC Hgb Hct MCV MCH MCHC RDW Plt Count MPV Immature Gran % Neutrophils % Lymphocytes % Monocytes % Eosinophils % Basophils % Nucleated RBC % Absolute Neutrophils Absolute Lymphocytes Absolute Monocytes Absolute Eosinophils Absolute Basophils RBC Morphology Polychromasia Poikilocytosis Microcytosis Sodium Potassium Chloride Carbon Dioxide Anion Gap BUN Creatinine Estimated GFR/1.73 m2 Glucose Calcium Magnesium Total Bilirubin Conjugated Bilirubin AST ALT Alkaline Phosphatase Troponin I < 50 Total Protein Albumin Urine Color Urine Clarity Urine pH Ur Specific [place] Urine Protein Urine Ketones Urine Blood Urine Nitrite Urine Bilirubin Urine Urobilinogen Ur Leukocyte Esterase Urine Glucose SARS-CoV-2 (PCR) Negative Patient ABO/Rh A Positive Antibody Screen NEGATIVE Crossmatch See Detail 02/01/22 02/01/22 02/01/22 14:56 16:28 16:40 WBC RBC Hgb 5.8 L* 6.3 L* Hct 18.0 L* 19.0 L* MCV MCH MCHC RDW Plt Count MPV Immature Gran % Neutrophils % Lymphocytes % Monocytes % Eosinophils % Basophils % Nucleated RBC % Absolute Neutrophils Absolute Lymphocytes Absolute Monocytes Absolute Eosinophils Absolute Basophils RBC Morphology Polychromasia Poikilocytosis Microcytosis Sodium Potassium Chloride Carbon Dioxide Anion Gap BUN Creatinine Estimated GFR/1.73 m2 Glucose Calcium Magnesium Total Bilirubin Conjugated Bilirubin AST ALT Alkaline Phosphatase Troponin I Total Protein Albumin Urine Color Yellow Urine Clarity Clear Urine pH 5.0 Ur Specific [place] 1.010 Urine Protein Negative Urine Ketones Negative Urine Blood Negative Urine Nitrite Negative Urine Bilirubin Negative Urine Urobilinogen 0.2 Ur Leukocyte Esterase Negative Urine Glucose 100 SARS-CoV-2 (PCR) Patient ABO/Rh Antibody Screen Crossmatch 02/02/22 02/02/22 02/02/22 02:00 06:01 06:01 WBC 7.65 RBC 2.34 L Hgb 7.0 L* 6.8 L* Hct 21.0 L 20.7 L* MCV 89 MCH 29.1 MCHC 32.9 D RDW 19.2 H Plt Count 125 L MPV 9.6 Immature Gran % 2.5 Neutrophils % 74.1 Lymphocytes % 11.0 Monocytes % 11.2 Eosinophils % 0.7 Basophils % 0.5 Nucleated RBC % 0.0 Absolute Neutrophils 5.67 Absolute Lymphocytes 0.84 L Absolute Monocytes 0.86 H Absolute Eosinophils 0.05 Absolute Basophils 0.04 RBC Morphology See Below Polychromasia Present Poikilocytosis 2+ Microcytosis 2+ Sodium 135 L Potassium 3.4 L Chloride 107 Carbon Dioxide 20.9 L Anion Gap 7.1 BUN 24 H Creatinine 1.3 Estimated GFR/1.73 m2 56.12 Glucose 88 Calcium 7.8 L Magnesium 1.5 L Total Bilirubin 0.7 Conjugated Bilirubin 0.2 AST 12 L ALT 15 L Alkaline Phosphatase 81 Troponin I Total Protein 5.0 L Albumin 2.6 L Urine Color Urine Clarity Urine pH Ur Specific [place] Urine Protein Urine Ketones Urine Blood Urine Nitrite Urine Bilirubin Urine Urobilinogen Ur Leukocyte Esterase Urine Glucose SARS-CoV-2 (PCR) Patient ABO/Rh Antibody Screen Crossmatch
[2022-02-02] MEDS: POTASSIUM CHLORIDE 20 MEQ/100 ML BAG 40 MEQ IVPB (11:15)
[2022-02-02 15:30] LABS: HCT 27.2 % (40.0-50.0)
[2022-02-02 15:38] LABS: HGB 8.9 g/dL (13.5-17.5)
--- NOTE | 2022-02-02 17:00 | CHAPLAIN ---
Chemo said he got some blood and is feeling better. When he got up from the bed to the chair this morning, he said he wasn't light-headed. After [facility] hospitalist staff checked with Chemo's oncologist, he may stay here for a procedure. Chemo and his , Destini, living in [place], but were visiting in [facility] as they are selling the home they used to live in here. 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 He said his pancreatic cancer was diagnosed early and he plans to beat it. He was in remission once and it return. A cousin, who is five years older, was diagnosed with stage 4 cancer and a month after his diagnosis. Chemo gets his treatments through the [facility] system and is very pleased with it. Chemo kids live in [place] and [place]. He hasn't seen them since they all went on a trip to [place] in May. He has a three year old granddaughter that he keeps in touch with through [facility]. Chemo cared for his when she went through breast cancer treatments several years ago, and she has told Chemo it's her turn to care for him know. Chemo continues to be positive about his prognosis and said that having a positive attitude has helped him through all this.
--- NOTE | 2022-02-02 18:57 | W.PM.PROGNOT ---
Date of Service Date of service: 02/02/22 Time of Service: 18:00 Assessment and Plan Assessment and plan (1) Symptomatic anemia: Status: Acute Assessment and plan: S/p 4 units pRBCS total. H/H improved to 8.9/27.2. No longer orthostatic. Heme +. For EGD tomorrow. I suspect this anemia, however, is multifactorial: chemotherapy related + GI blood loss. General surgery recommends MRCP since GI bleeding in pancreatic cancer may indicate extension of the tumor. Suspected sources: chemotherapy related (acute on chronic anemia) as well as possible GI blood loss (on anticoagulation). Continue PPI and carafate. NPO after midnight. (2) Syncope: Status: Chronic Assessment and plan: Due to above; as above (3) Orthostatic hypotension: Status: Acute Assessment and plan: due to above, as above Rechecking now that he has been transfused. (4) IDDM (insulin dependent diabetes mellitus): Assessment and plan: on insulin pump communicating to CGM. Continue home insulin pump while checking fingersticks to ensure that the pump is functioning properly. (5) Pancreatic cancer metastasized to liver: Assessment and plan: discussed with nurse at the patient's cancer center - either of the agents he is on could have contributed to anemia. We are obtaining an MRCP tomorrow. (6) Dehydration: Status: Acute Assessment and plan: continue IVF (7) Left leg DVT: Assessment and plan: Resolved by venous dopplers BLEs. Ok to continue holding anticoagulation. SCDs ordered for DVT ppx. (8) Discharge planning issues: Status: Acute Assessment and plan: Full code Continues to require hospitalization Subjective Subjective Interval history since last seen: The patient states that he had two episodes of vomiting prior to his hospitalization - one on Sunday after drinking a chocolate protein shake - this looked like chocoalte pudding. The second one was on Sunday and the emetic contents were beige. He is hemoccult positive today. He feels much better. He was able to sit and walk without dizziness. Denied chest pain, shortness of breath, nausea. Consents to having an EGD and MRCP tomorrow. Exam Narrative Exam Narrative: General: Pleasant middle-aged male, A&Ox3, looks better today, less pale, sitting in a chair HEENT: EOMI, MMM Cardiovascular: RRR, no m/r/g Lungs: CTAB Gastrointestinal: soft, nontender, nondistended Extremities: no edema BLEs, trace pedal pulses B, no clubbing/cyanosis, no lesions on B feet Objective Last Vital Signs Temp 36.6 C 02/02/22 13:40 Pulse 74 02/02/22 15:24 Resp 16 02/02/22 13:40 BP 144/89 H 02/02/22 13:40 Pulse Ox 100 02/02/22 13:40 Laboratory Results - last 24 hr 02/01/22 02/02/22 02/02/22 08:10 02:00 06:01 WBC RBC Hgb 7.0 L* Hct 21.0 L MCV MCH MCHC RDW Plt Count MPV Immature Gran % Neutrophils % Lymphocytes % Monocytes % Eosinophils % Basophils % Nucleated RBC % Absolute Neutrophils Absolute Lymphocytes Absolute Monocytes Absolute Eosinophils Absolute Basophils RBC Morphology Polychromasia Poikilocytosis Microcytosis Sodium 135 L Potassium 3.4 L Chloride 107 Carbon Dioxide 20.9 L Anion Gap 7.1 BUN 24 H Creatinine 1.3 Estimated GFR/1.73 m2 56.12 Glucose 88 Calcium 7.8 L Magnesium 1.5 L Total Bilirubin 0.7 Conjugated Bilirubin 0.2 AST 12 L ALT 15 L Alkaline Phosphatase 81 Total Protein 5.0 L Albumin 2.6 L Patient ABO/Rh A Positive Antibody Screen NEGATIVE Crossmatch See Detail 02/02/22 02/02/22 06:01 15:20 WBC 7.65 RBC 2.34 L Hgb 6.8 L* 8.9 L D Hct 20.7 L* 27.2 L MCV 89 MCH 29.1 MCHC 32.9 D RDW 19.2 H Plt Count 125 L MPV 9.6 Immature Gran % 2.5 Neutrophils % 74.1 Lymphocytes % 11.0 Monocytes % 11.2 Eosinophils % 0.7 Basophils % 0.5 Nucleated RBC % 0.0 Absolute Neutrophils 5.67 Absolute Lymphocytes 0.84 L Absolute Monocytes 0.86 H Absolute Eosinophils 0.05 Absolute Basophils 0.04 RBC Morphology See Below Polychromasia Present Poikilocytosis 2+ Microcytosis 2+ Sodium Potassium Chloride Carbon Dioxide Anion Gap BUN Creatinine Estimated GFR/1.73 m2 Glucose Calcium Magnesium Total Bilirubin Conjugated Bilirubin AST ALT Alkaline Phosphatase Total Protein Albumin Patient ABO/Rh Antibody Screen Crossmatch
[2022-02-03] VITALS (11 sets, daily range): BP systolic 105–118; BP diastolic 65–75; PULSE 64–101; RESP 12–20; TEMP 36.4–36.8; O2SAT 99–100; BMI 22.8
--- NOTE | 2022-02-03 | DI.MRI_ITS ---
Exam(s) MR ABDOMEN WO/W EXAM: MR ABDOMEN WO/W CLINICAL HISTORY: MRCP as well - pancreatic cancer, GI bleeding TECHNIQUE: Multiplanar multisequence MRI of the Abdomen was performed. MRCP sequences or also perf ormed. CONTRAST MATERIAL: IV Contrast: 60 mL of Dotarem contrast administered. COMPARISON: No exams were available for comparison FINDINGS: Exam is limited by patient motion. Liver: 3.4 centimeter mass inferior right lobe. Pancreas: Patient has a history of pancreatic cancer and Whipple procedure. Infiltrative mass in loc ation of pancreas. Borders difficult to delineate from pancreatic tissue. Mass surrounds splenic ve ssels. The splenic vein appears occluded. Arteries appear patent. Gallbladder and Bile Ducts: Status post cholecystectomy. No biliary dilatation. Bowel: Question of wall thickening and increased signal within the body of the stomach versus contraction and adjacent a scites. Adrenals: Unremarkable. Kidneys: Unremarkable. Spleen: Unremarkable. Aorta: Unremarkable. Soft Tissues: Unremarkable. Bone: Unremarkable. Lymph Nodes: Unremarkable. Peritoneal cavity: Moderate quantity of ascites seen around the liver. Small amount ascites seen talha und the spleen. IMPRESSION: Pancreatic mass with invasive appearance. Splenic vein occlusion. A 3.4 centimeter metastatic lesion inferior right lobe. Moderate quantity of ascites. No biliary dilatation. Status post cholecystectomy. Question of gastric wall thickening. DATA REPOSITORY:
[2022-02-03] MEDS: PHYTONADIONE 10 MG in Normal Saline 50 ML 200 MG IVPB (00:51)
[2022-02-03] MEDS: DEXTROSE 5%-LACTATED RINGERS 1,000 ML 125 ML IV ×2 (00:51→11:30)
[2022-02-03 06:54] LABS: HCT 22.3 % (40.0-50.0); HGB 7.4 g/dL (13.5-17.5); MCHC 33.2 % (32.0-36.0); MCV 88 fL (80-95); MPV 10.1 fL (8.0-11.0); RBC 2.55 10^6/uL (4.36-5.78); RDW 20.3 % (11.8-14.1); RDW-SD 51.5 fL; WBC 7.15 10^3/uL (4.4-10.8)
[2022-02-03 07:05] LABS: Anion Gap 7.8 mmol/L (3-11); BUN 15 mg/dL (7-18); CO2 22.2 mmol/L (21.0-32.0); CREATININE 1.3 mg/dL (0.70-1.30); Calcium 7.8 mg/dL (8.5-10.1); Chloride 111 mmol/L (98-107); Estimated GFR 56.12 (mL/min/1.73m2); Glucose 139 mg/dL (74-106); Potassium 3.6 mmol/L (3.5-5.1); Sodium 141 mmol/L (136-145)
[2022-02-03 07:20] LABS: Absolute Lymphocyte Count 0.86 10^3/uL (1.2-3.4); Absolute Monocyte Count 0.21 10^3/uL (0.1-0.8); Absolute Neutrophil Count 6.01 10^3/uL (1.2-6.7); Anisocytosis 2+; Bands % 3; Diff Comment Manual Differential; Metamyelocytes % 1; Platelet Count 126 10^3/uL (130-400)
[2022-02-03 08:02] LABS: Iron 25 ug/dL (65-175); Total Iron Binding Capacity 253 ug/dL (250-450); Transferrin Sat 10 % (20-55)
[2022-02-03 08:11] LABS: Ferritin 72 ng/mL (26-388)
--- NOTE | 2022-02-03 08:46 | PDOC.CMPRO ---
- If Service Date Differs Date of service: 02/03/22 Time of Service: 08:46 Care Management Progress Note S/O:Chemo was lying on a stretcher preparing to go to the OR for an EGD when CM met with him. He appeared to be in good spirits. Clinically he is stable with no evidence of active bleeding. His vital signs are stable and his H&H is 7.9/23.8. Buffy, the hospital interface analyst ,visited with his Destini offering support while Chemo was in the OR. As Chemo was previously employed at [employer], many of the staff know him and have also offered support. A: Chemo is a 61 year old man admitted on 02/01/22 with symptomatic anemia P:Chemo will be discharged home with no new services. He will follow up with his providers in [place] and transport with his . CM will continue to support Chemo and assess for discharge planning concerns.
[2022-02-03] MEDS: Gadoterate meglumine 20 ML VIAL 16 ML IVP (09:21)
[2022-02-03] MEDS: Normal Saline Flush 10 ML SYR IVP ×2 (10:53→21:16)
[2022-02-03] MEDS: Pantoprazole 40 MG VIAL IVP (10:58)
[2022-02-03] MEDS: IRON SUCROSE COMPLEX 200 MG in Normal Saline 100 ML 400 MG IVPB (11:49)
[2022-02-03 12:06] LABS: INR 1.2 (0.9-1.1); Prothrombin Time 12.1 sec (9.3-11.0)
--- NOTE | 2022-02-03 13:48 | W.ANESPRE ---
General Info Date of Service Date Performed: 02/03/22 Height: 6 ft 2 in Weight: 80.739 kg Body Mass Index (BMI): 22.8 Surgical Procedure: Operation Date: 02/03/22 13:20 Proposed Procedure Side Surgeon p Gastroscopy Alejandrina Gibson MD Meds Allergies and Home Medications Allergies Allergy/AdvReac Type Severity Reaction Status Date / Time amoxicillin Allergy Intermediate RASH Unverified 02/01/22 06:37 Penicillins Allergy Unknown Unverified 02/01/22 06:37 Home Medication Medication Instructions Recorded multivitamin (Once Daily tablet) 1 tab PO DAILY 12/27/12 metformin 1,000 mg tablet 1,000 mg PO BID #180 tab-caps 07/03/16 epoetin ira-epbx 2,000 unit/mL 1,000 unit subcut QWEEK 02/01/22 injection solution insulin aspart U-100 100 unit/mL 1 unit subcut DIRECTED 02/01/22 subcutaneous cartridge tccwzy-bssjpqmb-pzsjymm 1 cap PO TID 02/01/22 24,000-76,000-120,000 unit capsule,delayed rel (Creon) megestrol 400 mg/10 mL (10 mL) 400 mg PO DAILY 02/01/22 oral suspension ondansetron HCl 8 mg tablet 8 mg PO Q8H 02/01/22 (Zofran) pegfilgrastim-bmez 6 mg/0.6 mL 6 mg subcut DIRECTED 02/01/22 subcutaneous syringe (Ziextenzo) prochlorperazine maleate 10 mg 10 mg PO Q6H PRN 02/01/22 tablet rivaroxaban 20 mg tablet 20 mg PO DAILY 02/01/22 blood-glucose sensor (Dexcom G6 #3 ea 02/02/22 Sensor device) Current Visit Medications: Current Medications Generic Name Dose Route Start Last Admin Trade Name Freq PRN Reason Stop Dose Admin Acetaminophen 0 mg 02/01/22 08:42 Acetaminophen 325 Mg Tab PO Q4H PRN PRN Al Hydrox/Mg Hydrox/Simethicone 30 ml 02/01/22 08:42 Mylanta Suspension 30 Ml Cup PO Q2H PRN PRN Lipase/Protease/Amylase 4 - 6 cap 02/01/22 17:00 02/03/22 13:46 Creon, Lipase 12,000 Capcr PO Not Given QMEALS RAFA Lipase/Protease/Amylase 2 cap 02/01/22 14:26 Creon, Lipase 12,000 Capcr PO DAILY PRN PRN Dextrose 0 gm 02/01/22 08:48 Glucose 40% Oral Solution 15 Gm/37.5 Gm Tube PO DIRECTED PRN Dextrose/Water 0 gm 02/01/22 08:48 Dextrose 50%-Water 25 Gm/50 Ml Syr IVP DIRECTED PRN Dimethicone/Zinc Oxide 0 gm 02/01/22 08:42 Kelly Protect Cream 142 Gm Tube TP PRN PRN Docusate Sodium 100 mg 02/01/22 08:42 Docusate Sodium 100 Mg Cap PO TID PRN PRN Gadoterate Meglumine 16 ml 02/03/22 09:30 02/03/22 09:21 Gadoterate Meglumine 20 Ml Vial IVP 03/05/22 23:59 16 ml DIRECTED RAFA Administration Sodium Chloride 500 mls @ 0 mls/hr 02/01/22 08:42 Saline 500ml Bag IV PRN PRN As Directed Dextrose/Lactated Ringer's 1,000 mls @ 125 mls/hr 02/03/22 00:00 02/03/22 11:30 Dextrose 5%-Lr IV 125 mls/hr INFUSION RAFA Administration Iron Sucrose 200 mg/ Sodium 110 mls @ 400 mls/hr 02/03/22 12:00 02/03/22 13:46 Chloride IVPB 02/03/22 16:00 Infused TODAY@1200 RAFA Infusion Clindamycin Phosphate/Dextrose 600 mg in 50 mls @ 100 mls/hr 02/03/22 13:30 Cleocin In D5w IVPB 02/03/22 20:00 PREOP [facility] IV Miscellaneous Supplies 1 each 02/01/22 08:45 Iv Access IV DIRECTED RAFA Megestrol Acetate 400 mg 02/02/22 08:30 02/03/22 10:58 Megestrol 40 Mg/Ml Susp PO Not Given DAILY [facility] Metformin HCl 1,000 mg 02/01/22 17:00 02/02/22 16:21 Metformin 500 Mg Tab PO 1,000 mg BID INSULIN RAFA Administration Multi-Ingredient Supplement 1 ounce 02/03/22 08:30 02/03/22 10:58 Protein Nutritional Supplement 16 Gm 1 Ounce Packet PO Not Given BID [facility] Multivitamins 1 tab 02/02/22 08:30 02/03/22 10:58 Multivitamin Tab PO Not Given DAILY RAFA Ondansetron HCl 8 mg 02/01/22 12:21 Ondansetron 4 Mg Tab PO Q8H PRN PRN Pantoprazole Sodium 40 mg 02/01/22 08:00 02/03/22 10:58 Pantoprazole 40 Mg Vial IVP 40 mg Q12H RAFA Administration Pt's Own Insulin 0 each 02/01/22 12:30 Aspart 100 Unit/Ml SC Cartridge DIRECTED RAFA Prochlorperazine Maleate 10 mg 02/01/22 12:21 Prochlorperazine 10 Mg Tab PO Q6H PRN PRN Sodium Chloride 0 ml 02/01/22 08:42 02/03/22 10:53 Normal Saline Flush 10 Ml Syr IVP 10 ml PRN PRN Administration Sodium Chloride 25 ml 02/03/22 09:30 02/03/22 09:20 Normal Saline 50 Ml Bag IV 25 ml DIRECTED RAFA Administration Sucralfate 1 gm 02/01/22 16:30 02/03/22 13:46 Sucralfate 1 Gm Tab PO Not Given AC & HS RAFA PFSH Active Problems Active Problems: Problem Status Onset Code Elevated INR R79.1 Discharge planning issues Z02.9 Orthostatic hypotension I95.1 Symptomatic anemia D64.9 Syncope R55 Dehydration E86.0 Severe anemia D64.9 Diabetes mellitus 01/06/13 E11.9 Medical History Medical History Anemia IDDM (insulin dependent diabetes mellitus) Type 2; on insulin pump and metformin Incisional hernia Left leg DVT 2020 Pancreatic cancer metastasized to liver Surgical History Surgical History H/O Whipple procedure Hx of colonoscopy Osteoma L femur; resected Port-A-Cath in place S/P left inguinal hernia repair Tobacco Smoking/Tobacco Use Status: Never Alcohol Alcohol Intake: never Substance Use Substance use type: does not use Vital Signs and Lab Results Vital Signs Most Recent Vital Signs in EMR: Most Recent Vital Signs Temp Pulse Resp BP Pulse Ox 36.5 C 76 20 118/71 100 02/03/22 11:00 02/03/22 11:00 02/03/22 11:00 02/03/22 11:00 02/03/22 11:00 Point of Care Results Point of Care Results: Finger Stick Blood Glucose 178 02/03/22 11:28 Lab Results Result Diagrams: 02/03/22 06:00 02/03/22 06:00 Blood Type / Crossmatch: Patient ABO/Rh A Positive 02/01/22 Antibody Screen NEGATIVE 02/01/22 Crossmatch See Detail 02/01/22 Complete Blood Count: White Blood Count 7.15 10^3/uL (4.4-10.8) 02/03/22 06:00 Red Blood Count 2.55 10^6/uL (4.36-5.78) L 02/03/22 06:00 Hemoglobin 7.4 g/dL (13.5-17.5) L 02/03/22 06:00 Hematocrit 22.3 % (40.0-50.0) L 02/03/22 06:00 Platelet Count 126 10^3/uL (130-400) L 02/03/22 06:00 Complete Metabolic Panel: Sodium Level 141 mmol/L (136-145) 02/03/22 06:00 Potassium Level 3.6 mmol/L (3.5-5.1) 02/03/22 06:00 Chloride Level 111 mmol/L (98-107) H 02/03/22 06:00 Carbon Dioxide Level 22.2 mmol/L (21.0-32.0) 02/03/22 06:00 Blood Urea Nitrogen 15 mg/dL (7-18) 02/03/22 06:00 Creatinine 1.3 mg/dL (0.70-1.30) 02/03/22 06:00 Estimated GFR/1.73 m2 56.12 (mL/min/1.73m2) 02/03/22 06:00 Magnesium Level 2.0 mg/dL (1.8-2.4) 02/03/22 06:00 Calcium Level 7.8 mg/dL (8.5-10.1) L 02/03/22 06:00 Albumin 2.6 g/dL (3.4-5.0) L 02/02/22 06:01 Glucose Level 139 mg/dL (74-106) H 02/03/22 06:00 Liver Function Panel: Alanine Aminotransferase (ALT/SGPT) 15 U/L (16-63) L 02/02/22 06:01 Aspartate Amino Transf (AST/SGOT) 12 U/L (15-37) L 02/02/22 06:01 Coagulation Panel: INR International Normalized Ratio 1.2 (0.9-1.1) H 02/03/22 11:25 Prothrombin Time 12.1 sec (9.3-11.0) H 02/03/22 11:25 Activated Partial Thromboplast Time 27.5 sec (21.0-27.5) 02/01/22 06:42 D-Dimer 362 ng/mlFEU (<500) 02/01/22 06:42 Cardiac Panel: Troponin I < 50 ng/L (<or=60) 02/01/22 IZ-[id number]-I-Type Natriuretic Peptide 196 pg/mL (<300) 02/01/22 Arterial Blood Gas: No Data to Display Venous Blood Gas: No Data to Display Pancreas Panel: No Data to Display Thyroid Panel: Thyroid Stimulating Hormone (TSH) 5.69 uIU/mL (0.36-3.74) H 02/01/22 06:42 Infectious Disease: Coronavirus (COVID-19)(PCR) Negative (Negative) 02/01/22 09:30 Coronavirus 2019 Source Nasal/Nares 02/01/22 09:30 Blood Cultures: No Data to Display Toxicology Panel: No Data to Display Anesthesia Assessment and Plan Anesthesia History Personal History: No History of Anesthesia Complications Family History: No Family History of Anesthesia Complications Exercise Tolerance Exercise Tolerance: Metabolic Equivalents>4 Pertinent Negatives Pertinent Negatives: No Symptoms of GERD, No Major Cardiovascular Symptoms or Complaints, No Major Pulmonary Symptoms or Complaints and No History of CVA/TIA Cardiac & Pulmonary Exam Cardiac Exam: Normal S1/S2 Heart Sounds Pulmonary Exam: Clear Bilateral Breath Sounds Implantable Cardiac Device Does patient have a Pacemaker or an ICD?: No Airway Exam Known Difficult Airway: No Mallampati Class: 2 Mouth Opening: Normal (> 3cm) Thyromental Distance: Greater than 3 cm Neck Range of Motion: Full ROM Neck Circumference: Normal Teeth Condition: Normal Dentition ASA Classification ASA Score: ASA 3 Emergency Case?: No NPO Status NPO Status: NPO Clears >2 hours, Solids >8 hours Anesthesia Plan Resuscitation Status: Full Code Anesthesia Technique: General Anesthesia Airway Planned: Natural Airway Monitors Used: Standard Monitors Preoperative Comments:: Severe Anemia, question metastasis CA into stomach. Appropriately NPO.
[2022-02-03] MEDS: Lactated Ringers 1,000 ML 50 ML IV (14:18)
[2022-02-03] MEDS: CLINDAMYCIN 600 MG/50 ML BAG 100 MG IVPB (14:27)
--- NOTE | 2022-02-03 15:17 | CHAPLAIN ---
I visited with Chemo's , Destini, while Chemo was having an endoscopy done. Destini said they are trying to determine if his internal bleeding is from a stomach ulcer or if it has something to do with the mass on his pancreas. Chemo is being treated for pancreatic cancer that has metastasized to his liver. He was diagnosed two years ago. 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 Destini said they are very grateful for the support of local friends who helped them clean out the house and then drove some of their belongings back to [place] for them. Destini is hopeful that she and Chemo can return to [place] soon. Chemo receives his medical treatment at a branch if [facility] and is very please with his care there. His oncologist from [place] has been in touch with Destini and the physicians caring for Chemo here as well. Destini talked about Chemo's positive attitude and has determination to put up a fight and beat the caner.
--- NOTE | 2022-02-03 15:24 | W.PM.ENDDOP ---
Date of service: 02/03/22 Time of Service: 14:24 Endoscopy Report DATE OF PROCEDURE: 02/03/22 PRE-OP DIAGNOSIS: GI Bleed, Pancreatic cancer POST-OP DIAGNOSIS: other (bile gastritis) PROCEDURE: EGD SURGEON: Alejandrina Gibson ANESTHESIA TYPE: General:No Airway ESTIMATED BLOOD LOSS: 0 PATHOLOGY: none sent COMPLICATIONS: None DISPOSITION: PACU INDICATIONS: Pt has medastatic pancreatic CA w/ mets to liver.? He is activiely undergoing chemo.? Last chemo was I wrote he can was 5 and the 5-FU finished on 519. 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 He normally resides in [place] and gets his treatment there.? I did review the notes from his oncology team.? The tumor burden in the pancreatic bed is increasing in size.? The mass in his liver appears stable.? His CEA today to diet is continuing to rise.? They are going to continue with chemo at this. He was staying with some friends when he started to feel very weak/short of breath/fatigued.? And he came into the ER and was found to have a hemoglobin of 4.6.? He has had black tarry stools since Sunday.? He does not use aspirin or NSAIDs.? He eats a healthy diet.? He is not on any blood thinners.? He has never had any stomach problems before.? He has had a Whipple done.? He does not normally have problems with heartburn or indigestion.? He did not the last couple days that he is been having more indigestion type symptoms.? These were rather vague nondescript symptoms.? He has been on Protonix and Carafate since he has been in the hospital.? He had imaging on 12/30/2021 which again did show increase of tumor burden in the pancreatic bed.? There is no obstruction of the bile duct his LFTs are relatively normal.? His INR was mildly elevated at 2.2.? We will repeat this in a.m.? There is no signs of varices or esophageal problems on his last CT scan.? He has no abdominal pain today. He still having black sticky stools today.? no headaches.? No CP or SOB.? no productive cough.? no dysuria.? no leg pain or swelling.? EGD in am Informed consent is obtained for the procedural (explained in simple layman's terms that the pt and/or family could understand) explaining risks vs benefits and alternatives to the procedure and consequences if we do not do the procedure and need/rational for the procedure. Risks include but are not limited to: bleeding, infection, perforation of esophagus, stomach, colon, small intestines, bronchus or trachea, or PTX. This would necessitate emergency surgery to repair the damage w/ possible ostomy; and other associated complications w/ the required surgery. Also complications of anesthesia including aspiration, [place]/CVA/. PROCEDURE DESCRIPTION: After informed consent was obtained the patient was take to the procedure room and placed in a supine position. Monitors were applied and a time out was done. The patients name, date of , procedure type, allergies to medications and metal in their body was reviewed. A bite block was placed and the patient was sedated. Once sedated and comfortable the gastroscope was advanced through the oropharynx which was grossly normal into the esophagus. The proximal and mid-esophagus were normal. In the distal esophagus there was mild inflammation noted. The scope was advanced into the stomach and into the efferent limb of the small intestine. The small intestine looked healthy. There were no ulcers and no sign of bleeding. There was no anastamotic ulcers. The scope was retracted back into the stomach. There was some inflammation from bile refluxing back into the stomach. There were no ulcers and no actve bleeding. The scope was retroflexed. The cardia and fundus were noted to be normal. The scope was retracted back into the esophagus. The Z line was regular. The GE junction was at 32 cm. The scope was removed and the patient was woken up and taken back to [facility] in stable condition. Follow up: with Oncology back home in [place]. Marni KLEIN
[2022-02-03 15:40] LABS: HCT 23.8 % (40.0-50.0); HGB 7.9 g/dL (13.5-17.5)
--- NOTE | 2022-02-03 15:48 | W.ANESPOSTOP ---
Postoperative Evaluation Date, Time and Location Date Performed: 02/03/22 Time Performed: 15:48 Patient Location: PACU Vital Signs Most Recent Imported Vital Signs: Most Recent Vital Signs Temp Pulse Resp BP Pulse Ox 36.7 C 75 19 116/75 100 02/03/22 15:40 02/03/22 15:40 02/03/22 15:40 02/03/22 15:40 02/03/22 15:40 Pain Score Most Recent Pain Score: Most Recent Pain Score Pain Level 0 02/03/22 14:50 Assessment Mental Status: Awake (Alert & Oriented to Patient Baseline) Airway and Respiratory Function: Patent airway with normal (patient baseline) respiratory exam Cardiovascular Function: Hemodynamically Stable Hydration Status: Adequately Hydrated Nausea & Vomiting: No Nausea or Vomiting Pain: Pt. Denies Any Pain Peripheral Nerve Block: Patient did not receive a nerve block Postoperative Comments:: Patient seen earlier in PACU and was doing well. No questions or concerns.
[2022-02-03] MEDS: Sucralfate 1 GM TAB PO ×2 (16:40→21:08)
--- NOTE | 2022-02-03 19:54 | W.PM.PROGNOT ---
Date of Service Date of service: 02/03/22 Time of Service: 17:10 Assessment and Plan Assessment and plan (1) Symptomatic anemia: Status: Acute Assessment and plan: S/p 4 units pRBCS total. H/H is 7.9 - partly dilutional, partly due to chemotherapy, and partly perhaps due to some degree of oozing below the level that the EGD surveyed. As long as H/H remains relatively stable, the patient can be discharged home tomorrow on carafate. No anticoagulation on discharge. (2) Syncope: Status: Resolved Assessment and plan: Due to above; as above (3) Orthostatic hypotension: Status: Resolved Assessment and plan: due to above, as above (4) IDDM (insulin dependent diabetes mellitus): Assessment and plan: on insulin pump communicating to CGM. Continue home insulin pump while checking fingersticks to ensure that the pump is functioning properly. (5) Pancreatic cancer metastasized to liver: Assessment and plan: Per general surgery, the cancer does appear to be more invasive and is abutting the stomach. There was no tumor visible in the stomach on EGD, but the area where the cancer was abutting was indented. The patient will return to follow up with his oncologist in [place]. I have requested that a CD be made with his imaging that can be taken back with him to [place]. (6) Dehydration: Status: Resolved Assessment and plan: D/c IVF. (7) Left leg DVT: Assessment and plan: Resolved by venous dopplers BLEs. Ok to continue holding anticoagulation. SCDs ordered for DVT ppx. I recommended and ordered TEDs for when the patient travels. (8) Discharge planning issues: Status: Acute Assessment and plan: Full code Anticipate discharge home tomorrow. Subjective Subjective Interval history since last seen: Mr Pickens's last BM was this morning - still looked tarry. He denies dizziness, chest pain, shortness of breath. He underwent an EGD today, which revealed bile gastritis with friable mucosa and no active bleeding or ulcerations. The recommendation was for him to remain on carafate AC/HS for life. Exam Narrative Exam Narrative: General: Pleasant middle-aged male, A&Ox3, looks better, sitting up at the edge of the bed. HEENT: EOMI, MMM Cardiovascular: not auscultated Lungs: nonlabored breathing Gastrointestinal: nondistended Extremities: trace edema at B ankles Objective Last Vital Signs Temp 36.7 C 02/03/22 15:40 Pulse 100 H 02/03/22 17:37 Resp 19 02/03/22 15:40 BP 116/75 02/03/22 15:40 Pulse Ox 100 02/03/22 15:40 Laboratory Results - last 24 hr 02/03/22 02/03/22 02/03/22 06:00 06:00 06:00 WBC RBC Hgb Hct MCV MCH MCHC RDW Plt Count MPV Immature Gran % Neutrophils % Band Neutrophils % Lymphocytes % Monocytes % Eosinophils % Basophils % Metamyelocytes % Nucleated RBC % Absolute Neutrophils Absolute Lymphocytes Absolute Monocytes Absolute Eosinophils Absolute Basophils RBC Morphology Anisocytosis PT INR Sodium 141 Potassium 3.6 Chloride 111 H Carbon Dioxide 22.2 Anion Gap 7.8 BUN 15 Creatinine 1.3 Estimated GFR/1.73 m2 56.12 Glucose 139 H Calcium 7.8 L Magnesium 2.0 Iron 25 L TIBC 253 Transferrin % Sat 10 L Ferritin 72 02/03/22 02/03/22 02/03/22 06:00 11:25 15:35 WBC 7.15 RBC 2.55 L Hgb 7.4 L 7.9 L Hct 22.3 L 23.8 L MCV 88 MCH 29.0 MCHC 33.2 RDW 20.3 H Plt Count 126 L MPV 10.1 Immature Gran % 0.0 Neutrophils % 81.0 Band Neutrophils % 3 Lymphocytes % 12.0 Monocytes % 3.0 Eosinophils % 0.0 Basophils % 0.0 Metamyelocytes % 1 Nucleated RBC % 0.0 Absolute Neutrophils 6.01 Absolute Lymphocytes 0.86 L Absolute Monocytes 0.21 Absolute Eosinophils 0.00 Absolute Basophils 0.00 RBC Morphology See Below Anisocytosis 2+ PT 12.1 H INR 1.2 H Sodium Potassium Chloride Carbon Dioxide Anion Gap BUN Creatinine Estimated GFR/1.73 m2 Glucose Calcium Magnesium Iron TIBC Transferrin % Sat Ferritin Objective Narrative Objective Narrative: MRCP: Pancreatic mass with invasive appearance.? Splenic vein occlusion. A 3.4 centimeter metastatic lesion inferior right lobe. Moderate quantity of ascites. No biliary dilatation.? Status post cholecystectomy. Question of gastric wall thickening.
[2022-02-03] MEDS: Protein Nutritional Supplement 16 GM 1 OUNCE PACKET PO (21:08)
[2022-02-04] VITALS (7 sets, daily range): BP systolic 116–127; BP diastolic 70–86; PULSE 66–120; RESP 16–18; TEMP 36.3–37; O2SAT 98–100
[2022-02-04 07:03] LABS: HCT 22.6 % (40.0-50.0); HGB 7.4 g/dL (13.5-17.5); MCH 29.6 pg (27.0-33.0); MCHC 32.7 % (32.0-36.0); MCV 90 fL (80-95); MPV 10.1 fL (8.0-11.0); Platelet Count 130 10^3/uL (130-400); RDW 22.2 % (11.8-14.1); RDW-SD 56.5 fL; WBC 7.54 10^3/uL (4.4-10.8)
[2022-02-04 07:19] LABS: BUN 17 mg/dL (7-18); CREATININE 1.2 mg/dL (0.70-1.30); Calcium 8.4 mg/dL (8.5-10.1); Chloride 112 mmol/L (98-107); Glucose 89 mg/dL (74-106); Magnesium 1.8 mg/dL (1.8-2.4); Potassium 3.5 mmol/L (3.5-5.1); Sodium 143 mmol/L (136-145)
[2022-02-04] MEDS: Sucralfate 1 GM TAB PO (08:22)
[2022-02-04] MEDS: Multivitamin TAB 1 TAB PO (08:22)
[2022-02-04] MEDS: metFORMIN 500 MG TAB 1000 MG PO (08:22)
[2022-02-04] MEDS: Protein Nutritional Supplement 16 GM 1 OUNCE PACKET PO (08:25)
--- NOTE | 2022-02-04 12:46 | W.PM.DS.N ---
Date of service: 02/04/22 Time of Service: 11:46 DS: Diagnosis Discharge Diagnosis (1) Symptomatic anemia: Status: Acute (2) Syncope: Status: Resolved (3) Orthostatic hypotension: Status: Resolved (4) IDDM (insulin dependent diabetes mellitus): (5) Pancreatic cancer metastasized to liver: (6) Dehydration: Status: Resolved (7) Left leg DVT: (8) Discharge planning issues: Status: Acute Discharge Plan Disposition Patient Disposition: HOME Condition: Fair Discharge Details Reason For Visit: Symptomatic anemia Admit Date/Time: 02/01/22 08:43 Admit Provider: Shahnaz Sotelo Attending Provider: Shahnaz Sotelo [facility] Hospital Course: Mr Pickens is a 61 year old male with PMHx of metastatic pancreatic cancer on chemoctherapy with irinotecan and 5FU, as well as h/o prior DVT in [facility] (2019) on xarelto, IDDM2 on insulin pump and metformin, chronic anemia on erythropoetin, who presented to [facility] ED after 2 syncopal episodes in the bathroom on day of admission following urination. He did hit his head on the sink during one of the falls. Per patient, his had noticed some blood in his stool today as well, but he was hemoccult negative in the ED. He had recently traveled in the car from [place] (in one day) and had noticed some leg swelling. In the ED, he had another syncopal episode and was orthostatic. His workup revealed a hemoglobin of 4.6. He was ordered 2 units of pRBCs. Hospitalist admission was requested. The patient is not interested in having any endoscopic procedures here - he would prefer to return to [place] where he gets his care. He would like us to contact his oncologist Dr Frausto [phone]. He did later agree to an EGD; findings were mild distal esophagus inflammation, otherwise normal. His Hgb trend was 4.6>5.8>6.3>7.0>8.9>7.4>7.>7.4. He had no further syncopal or pre-syncopal episodes. His stool was noted to be black. He was transfused another unit of pRBCs. He was initiated on carafate QAC and HS and will continue this upon discharge. He has an appt with his oncolobist, Dr Frausto on , 02/07/22. He was discharged with a disc of his radiology scans to take to his oncologist. He will need f/u on lab to monitor his hemoglobin and a decision on when to resume his anticoagulation. Home Meds and New Rx's Prescriptions: New (DME) Dexcom G6 Sensor Device See Rx Instructions .Route Qty: 3 0RF Rx Instructions: For use with insulin pump sucralfate 1 gram Tablet 1 g PO AC & HS Qty: 120 0RF Continued multivitamin [Once Daily] 1 EACH tablet 1 tab PO DAILY metformin 1,000 MG tablet 1,000 mg PO BID Qty: 180 ondansetron HCl [Zofran] 8 mg Tablet 8 mg PO Q8H prochlorperazine maleate 10 mg Tablet 10 mg PO Q6H PRN insulin aspart U-100 100 unit/mL Cartridge 1 unit SUBCUT DIRECTED Rx Instructions: given by pump when needed Creon 24,000-76,000 -120,000 unit Capsule,Delayed Release(Dr/Ec) 1 cap PO TID Rx Instructions: administer with meals and/or snacks, 2-3 with each meal 1 with snack megestrol 400 mg/10 mL (10 mL) Suspension 400 mg PO DAILY epoetin ira-epbx 2,000 unit/mL Solution 1,000 unit subcut QWEEK Ziextenzo 6 mg/0.6 mL Syringe 6 mg SUBCUT DIRECTED Rx Instructions: every 2 weeks, 24 hours after chemo treatment Held rivaroxaban 20 mg Tablet 20 mg PO DAILY Hold Instructions: Resume on 02/08/22. Resume on 02/08/22 if cleared to resume by oncology Rx Instructions: must administer with evening meal Discharge Instructions Instructions: Anemia (DC) Stand Alone Forms: Nursing Discharge Form Referrals: PCP [Other] (Please call your PCP when you get home to make a follow up appointment.) Activity:: Activity as Tolerated Equipment/Supplies:: No Equipment Needed Diet:: Resume usual home diet Discharge Orders Discharge Orders: Discharge Order (Routine); Ordered 02/04/22 Ordered By: Blanco Mayer DS: Summary Time Spent with Patient providing and/or coordinating discharge services: Greater than 30 minutes Status at Discharge Functional status at discharge: independent ambulation Overall status at discharge: patient is progressing back to baseline Mental Status: mental status grossly normal Speech and Movement: speech and movement normal Mood: congruent mood Affect: normal affect Exam Narrative Exam Narrative: General: Pleasant middle-aged male, sitting in recliner. NAD. HEENT: EOMI, MMM Cardiovascular: not auscultated Lungs: nonlabored breathing. Gastrointestinal: nondistended Extremities: trace edema at B ankles Psych: A&O x3. Affect appropriate. Psych Mental Status: mental status grossly normal Speech and Movement: speech and movement normal Mood: congruent mood Affect: normal affect DS: Data Vitals/I&O Vitals and I&O: Vital Signs Temperature 36.4 C L 02/03/22 19:55 Temperature Source Tympanic 02/03/22 19:55 Pulse 120 H 02/04/22 08:37 Pulse Rhythm Regular 02/03/22 22:14 Respiratory Rate 19 02/03/22 19:55 Respiratory Effort Non-Labored 02/03/22 22:14 Respiratory Depth Normal 02/03/22 22:14 Respiratory Pattern Normal 02/03/22 22:14 Blood Pressure 112/66 02/03/22 19:55 Blood Pressure Position Sitting 02/01/22 06:22 Pulse Oximetry 100 02/03/22 19:55 Oxygen Delivery Method Room Air 02/03/22 19:55 Oxygen Flow Rate 0 02/03/22 19:55 Pain Level 0 02/03/22 14:50 Comment 02/02/22 21:54 Intake & Output 02/03/22 02/04/22 02/04/22 23:59 11:59 23:59 Intake Total 1411 / 3383.917 340 / 340 Balance 1411 / -76.083 340 / 340 Weight 80.739 kg Intake: IV 1411 / 3383.917 Oral 340 / 340 Other: Urine Appearance Clear Emesis Description None Data Completed and Pending Labs on day of discharge: Labs from last 24 hours 02/04/22 02/04/22 02/04/22 10:47 06:00 06:00 WBC 7.54 RBC 2.50 L Hgb 7.4 L Hct 22.6 L MCV 90 MCH 29.6 MCHC 32.7 RDW 22.2 H Plt Count 130 MPV 10.1 Sodium 143 Potassium 3.5 Chloride 112 H Carbon Dioxide 23.0 Anion Gap 8.0 BUN 17 Creatinine 1.2 Estimated GFR/1.73 m2 >= 60.00 Glucose 89 Calcium 8.4 L Magnesium 1.8 Patient ABO/Rh Pending Crossmatch See Detail 02/03/22 15:35 WBC RBC Hgb 7.9 L Hct 23.8 L MCV MCH MCHC RDW Plt Count MPV Sodium Potassium Chloride Carbon Dioxide Anion Gap BUN Creatinine Estimated GFR/1.73 m2 Glucose Calcium Magnesium Patient ABO/Rh Crossmatch PFSH All Active Problems Elevated INR (Acute) Discharge planning issues (Acute) Symptomatic anemia (Acute) Severe anemia (Acute) Diabetes mellitus (Acute 01/06/13) Medical History Anemia IDDM (insulin dependent diabetes mellitus) Type 2; on insulin pump and metformin Incisional hernia Left leg DVT 2019 Pancreatic cancer metastasized to liver Surgical History H/O Whipple procedure Hx of colonoscopy Osteoma L femur; resected Port-A-Cath in place S/P left inguinal hernia repair Family History Brother Dementia Father Heart disease CHF Hypertension Father Diabetes Mother Diabetes Paternal Grandmother Cancer stomach cancer Social History Smoking/Tobacco Use Status: Never Smoking risk assessment performed?: Yes Alcohol Intake: never Substance use type: does not use Do you feel safe at home: Yes Do you feel safe in your relationship?: Yes
--- NOTE | 2022-02-04 12:59 | PDOC.CMDIS ---
- If Service Date Differs Date of service: 02/04/22 Time of Service: 12:59 LACE Index Scoring Tool - Questions: Length of Stay (in days): 3 Acuity (Admit via E.D.?): Yes Comorbidities: Diabetes w/o Complication, Any Tumor, Metastatic Solid Tumor E.D. Visits: 1 - Answers: Total Score: 12 Risk of Readmission: High Risk Care Management Discharge Reason for Hospitalization: symptomatic anemia Discharge Plan: Discharge home via private vehicle with family. No [facility] services are indicated at this time. Chemo will follow up with community providers and discharge plan of care as prescribed. Patient/Family Education Needs: Review discharge instructions. limitations, medications and plan to follow up with community providers. ask me three.
[2022-02-04] MEDS: Normal Saline Flush 10 ML SYR IVP (18:00)
[2022-02-04] MEDS: Heparin 500 UNITS/5 ML SYRINGE IVP (18:01)
== END 2022-02-04 18:23 | disposition home or self-care (01) | DRG 812 ==
LOC: ER 09:45 → MS 10:22
PROVIDERS: Student in an Organized Health Care Education/Training Program; Surgery; Admitting Provider Internal Medicine; Emergency Provider Student in an Organized Health Care Education/Training Program; Visit Provider Internal Medicine
PROC: 0DJ68ZZ Inspection of Stomach, Via Natural or Artificial Opening Endoscopic (ICD-10-PCS; CPT 43235; principal; 2022-02-03 13:15)
DX: D64.81 Anemia due to antineoplastic chemotherapy (principal); C25.9 Malignant neoplasm of pancreas, unspecified; C78.7 Secondary malignant neoplasm of liver and intrahepatic bile duct; K92.1 Melena; D50.0 Iron deficiency anemia secondary to blood loss (chronic); T45.1X5A Adverse effect of antineoplastic and immunosuppressive drugs, initial encounter; I95.1 Orthostatic hypotension; E86.0 Dehydration; E11.9 Type 2 diabetes mellitus without complications; Z79.01 Long term (current) use of anticoagulants; Z86.718 Personal history of other venous thrombosis and embolism; Z79.82 Long term (current) use of aspirin; Z79.84 Long term (current) use of oral hypoglycemic drugs; Z79.4 Long term (current) use of insulin; Z96.41 Presence of insulin pump (external) (internal); W18.39XA Other fall on same level, initial encounter; W22.09XA Striking against other stationary object, initial encounter; K29.60 Other gastritis without bleeding; Z79.899 Other long term (current) drug therapy
CPT/HCPCS: 43235; 36415; 74183; 80048; 80053; 80076; 85027; 86850; 86900; 86901; 86920; 86945; 87635; 93005; 96360; 99285; 70450; 81003; 82728; 83540; 83550; 83735; 83880; 84439; 84443; 84484; 85014; 85018; 85025; 85379; 85610; 85730; 93010; 93970; 99222; 99233; 99239; J1756; J3430; J3475; J3480; J9999; P9016